=== PATIENT | male | born 1980 | race American Indian/Alaskan Native ===

== ENCOUNTER 2016-09-08 23:15 | Emergency (ER) | payer MEDICARE, OTHER ==
[2016-09-09 00:22] LABS: Basophils % (Auto) 1.3 % (0.0-1.8); Eosinophils % (Auto) 2.2 % (0.0-4.3); Hemoglobin 13.9 gm/dl (11.8-15.2); Mean Corpuscular HGB Conc 32 % (32-34); Mean Corpuscular Hemoglobin 29 pg (28-32); Mean Corpuscular Volume 90 fl (84-94); Platelet Count 197 K/mm3 (140-440); Red Blood Count 4.75 M/mm3 (3.65-5.03); White Blood Count 8.6 K/mm3 (4.5-11.0)
[2016-09-09 00:47] LABS: Anion Gap 17 mmol/L; Blood Urea Nitrogen 16 mg/dL (9-20); Calcium 8.7 mg/dL (8.4-10.2); Carbon Dioxide 24 mmol/L (22-30); Chloride 104.5 mmol/L (98-107); Glucose 87 mg/dL (75-100); Potassium 4.2 mmol/L (3.6-5.0); Sodium 141 mmol/L (137-145)
[2016-09-09 01:11] LABS: Urine Drugs of Abuse Note Disclamer
[2016-09-09 01:37] LABS: Bilirubin,Urine NEG (Negative); Blood,Urine NEG (Negative); Ketones,Urine NEG (Negative); Leukocyte Esterase,Urine NEG (Negative); Mucus,Urine FEW /HPF; Nitrite,Urine NEG (Negative); Protein,Urine <15 mg/dL mg/dL (Negative)
--- NOTE | 2016-09-09 09:36 | Emergency Department Report ---
ED Psych HPI - General Chief Complaint: Psych Stated Complaint: MENTAL EVALUATION Time Seen by Provider: 09/09/16 09:35 Source: patient Mode of arrival: Ambulatory - History of Present Illness Initial Comments: Patient states that he wanted to [facility] and he was sent here for medical clearance. He states he has been through this process before many times. He admits noncompliance with his medication. He would like to be placed back on his medication in the inpatient setting because he "feels homicidal and suicidal". He has not made any specific plan. He is not taking an overdose or committed any active self-harm. He states he has a "paranoid schizophrenic". MD Complaint: suicidal ideation -: year(s) Associated Psychiatric Symptoms: suicidal ideation, homicidal ideation History of same: Yes Quality: intermittent Improves With: none Worsens With: none Context: not taking psychiatric Associated Symptoms: denies other symptoms - Related Data Allergies Allergy/AdvReac Type Severity Reaction Status Date / Time divalproex sodium Allergy Seizure Verified 09/08/16 23:57 [From Depakote] haloperidol [From Haldol] AdvReac Unknown Verified 09/08/16 23:57 haloperidol lactate AdvReac Unknown Verified 09/08/16 23:57 [From Haldol] ED Review of Systems ROS: Stated complaint: MENTAL EVALUATION Other details as noted in HPI Constitutional: denies: chills, fever Eyes: denies: eye pain, eye discharge, vision change ENT: denies: ear pain, throat pain Respiratory: denies: cough, shortness of breath, wheezing Cardiovascular: denies: chest pain, palpitations Endocrine: no symptoms reported Gastrointestinal: denies: abdominal pain, nausea, diarrhea Genitourinary: denies: urgency, dysuria Musculoskeletal: denies: back pain, joint swelling, arthralgia Skin: denies: rash, lesions Neurological: denies: headache, weakness, paresthesias Psychiatric: homicidal thoughts, suicidal thoughts. denies: anxiety, depression Hematological/Lymphatic: denies: easy bleeding, easy bruising ED Past Medical Hx - Past Medical History Hx Psychiatric Treatment: Yes (paranoid schizophrenic, PTSD) - Surgical History Past Surgical History?: Yes Additional Surgical History: pilonidal cyst removed from tailbone - Social History Smoking Status: Current Every Day Smoker Substance Use Type: Cocaine ED Physical Exam - General Limitations: No Limitations General appearance: alert, in no apparent distress - Head Head exam: Present: atraumatic, normocephalic - Eye Eye exam: Present: normal appearance. Absent: scleral icterus - ENT ENT exam: Present: normal exam, mucous membranes moist - Neck Neck exam: Present: normal inspection - Respiratory Respiratory exam: Present: normal lung sounds bilaterally. Absent: respiratory distress - Cardiovascular Cardiovascular Exam: Present: regular rate, normal rhythm. Absent: systolic murmur, diastolic murmur, rubs, gallop - GI/Abdominal GI/Abdominal exam: Present: soft, normal bowel sounds. Absent: distended, tenderness, guarding, rebound, rigid - Rectal Rectal exam: Present: deferred - Extremities Exam Extremities exam: Present: normal inspection - Back Exam Back exam: Present: normal inspection - Neurological Exam Neurological exam: Present: alert, oriented X3, CN II-XII intact. Absent: motor sensory deficit - Psychiatric Psychiatric exam: Present: normal affect, normal mood - Skin Skin exam: Present: warm, dry, intact, normal color. Absent: rash ED Course Vital Signs 09/09/16 09/09/16 12:16 12:17 Temperature 98.6 F Pulse Rate 74 Respiratory 20 20 Rate Blood Pressure 154/79 [Left] O2 Sat by Pulse 100 100 Oximetry - Reevaluation(s) Reevaluation #1: Consultation [facility] is pending. 09/09/16 13:21 Reevaluation #2: I have spoken to the mental health counselor again. They have yet to determine the patient's disposition. He is medically clear for psychiatric placement. 09/09/16 15:44 ED Medical Decision Making - Lab Data Result diagrams: 09/09/16 00:10 09/09/16 00:10 Laboratory Results - last 24 hr 09/08/16 09/08/16 09/09/16 Unknown Unknown 00:10 WBC 8.6 RBC 4.75 Hgb 13.9 Hct 43.0 MCV 90 MCH 29 MCHC 32 RDW 14.0 Plt Count 197 Lymph % (Auto) 47.3 H Wood % (Auto) 7.5 H Eos % (Auto) 2.2 Baso % (Auto) 1.3 Lymph # 4.1 Wood # 0.6 Eos # 0.2 Baso # 0.1 Seg Neutrophils % 41.7 Seg Neutrophils # 3.6 Sodium Potassium Chloride Carbon Dioxide Anion Gap BUN Creatinine Estimated GFR BUN/Creatinine Ratio Glucose Calcium Urine Color Yellow Urine Turbidity Cloudy Urine pH 7.0 Ur Specific Britt 1.026 Urine Protein <15 mg/dl Urine Glucose (UA) Neg Urine Ketones Neg Urine Blood Neg Urine Nitrite Neg Urine Bilirubin Neg Urine Urobilinogen 4.0 Ur Leukocyte Esterase Neg Urine WBC (Auto) 7.0 H Urine RBC (Auto) 2.0 U Epithel Cells (Auto) < 1.0 Urine Mucus Few Salicylates Urine Opiates Screen Presumptive negative Urine Methadone Screen Presumptive negative Acetaminophen Ur Barbiturates Screen Presumptive positive Ur Phencyclidine Scrn Presumptive negative Ur Amphetamines Screen Presumptive negative U Benzodiazepines Scrn Presumptive negative Urine Cocaine Screen Presumptive positive U Marijuana (THC) Screen Presumptive negative Drugs of Abuse Note Disclamer Plasma/Serum Alcohol 09/09/16 09/09/16 09/09/16 00:10 00:10 00:10 WBC RBC Hgb Hct MCV MCH MCHC RDW Plt Count Lymph % (Auto) Wood % (Auto) Eos % (Auto) Baso % (Auto) Lymph # Wood # Eos # Baso # Seg Neutrophils % Seg Neutrophils # Sodium 141 Potassium 4.2 Chloride 104.5 Carbon Dioxide 24 Anion Gap 17 BUN 16 Creatinine 1.0 Estimated GFR > 60 BUN/Creatinine Ratio 16.00 Glucose 87 Calcium 8.7 Urine Color Urine Turbidity Urine pH Ur Specific Britt Urine Protein Urine Glucose (UA) Urine Ketones Urine Blood Urine Nitrite Urine Bilirubin Urine Urobilinogen Ur Leukocyte Esterase Urine WBC (Auto) Urine RBC (Auto) U Epithel Cells (Auto) Urine Mucus Salicylates < 0.3 L Urine Opiates Screen Urine Methadone Screen Acetaminophen < 15.0 Ur Barbiturates Screen Ur Phencyclidine Scrn Ur Amphetamines Screen U Benzodiazepines Scrn Urine Cocaine Screen U Marijuana (THC) Screen Drugs of Abuse Note Plasma/Serum Alcohol 09/09/16 00:10 WBC RBC Hgb Hct MCV MCH MCHC RDW Plt Count Lymph % (Auto) Wood % (Auto) Eos % (Auto) Baso % (Auto) Lymph # Wood # Eos # Baso # Seg Neutrophils % Seg Neutrophils # Sodium Potassium Chloride Carbon Dioxide Anion Gap BUN Creatinine Estimated GFR BUN/Creatinine Ratio Glucose Calcium Urine Color Urine Turbidity Urine pH Ur Specific Britt Urine Protein Urine Glucose (UA) Urine Ketones Urine Blood Urine Nitrite Urine Bilirubin Urine Urobilinogen Ur Leukocyte Esterase Urine WBC (Auto) Urine RBC (Auto) U Epithel Cells (Auto) Urine Mucus Salicylates Urine Opiates Screen Urine Methadone Screen Acetaminophen Ur Barbiturates Screen Ur Phencyclidine Scrn Ur Amphetamines Screen U Benzodiazepines Scrn Urine Cocaine Screen U Marijuana (THC) Screen Drugs of Abuse Note Plasma/Serum Alcohol < 0.01 Laboratory Results - last 24 hr 09/08/16 09/08/16 09/09/16 Unknown Unknown 00:10 WBC 8.6 RBC 4.75 Hgb 13.9 Hct 43.0 MCV 90 MCH 29 MCHC 32 RDW 14.0 Plt Count 197 Lymph % (Auto) 47.3 H Wood % (Auto) 7.5 H Eos % (Auto) 2.2 Baso % (Auto) 1.3 Lymph # 4.1 Wood # 0.6 Eos # 0.2 Baso # 0.1 Seg Neutrophils % 41.7 Seg Neutrophils # 3.6 Sodium Potassium Chloride Carbon Dioxide Anion Gap BUN Creatinine Estimated GFR BUN/Creatinine Ratio Glucose Calcium Urine Color Yellow Urine Turbidity Cloudy Urine pH 7.0 Ur Specific Britt 1.026 Urine Protein <15 mg/dl Urine Glucose (UA) Neg Urine Ketones Neg Urine Blood Neg Urine Nitrite Neg Urine Bilirubin Neg Urine Urobilinogen 4.0 Ur Leukocyte Esterase Neg Urine WBC (Auto) 7.0 H Urine RBC (Auto) 2.0 U Epithel Cells (Auto) < 1.0 Urine Mucus Few Salicylates Urine Opiates Screen Presumptive negative Urine Methadone Screen Presumptive negative Acetaminophen Ur Barbiturates Screen Presumptive positive Ur Phencyclidine Scrn Presumptive negative Ur Amphetamines Screen Presumptive negative U Benzodiazepines Scrn Presumptive negative Urine Cocaine Screen Presumptive positive U Marijuana (THC) Screen Presumptive negative Drugs of Abuse Note Disclamer Plasma/Serum Alcohol 09/09/16 09/09/16 09/09/16 00:10 00:10 00:10 WBC RBC Hgb Hct MCV MCH MCHC RDW Plt Count Lymph % (Auto) Wood % (Auto) Eos % (Auto) Baso % (Auto) Lymph # Wood # Eos # Baso # Seg Neutrophils % Seg Neutrophils # Sodium 141 Potassium 4.2 Chloride 104.5 Carbon Dioxide 24 Anion Gap 17 BUN 16 Creatinine 1.0 Estimated GFR > 60 BUN/Creatinine Ratio 16.00 Glucose 87 Calcium 8.7 Urine Color Urine Turbidity Urine pH Ur Specific Britt Urine Protein Urine Glucose (UA) Urine Ketones Urine Blood Urine Nitrite Urine Bilirubin Urine Urobilinogen Ur Leukocyte Esterase Urine WBC (Auto) Urine RBC (Auto) U Epithel Cells (Auto) Urine Mucus Salicylates < 0.3 L Urine Opiates Screen Urine Methadone Screen Acetaminophen < 15.0 Ur Barbiturates Screen Ur Phencyclidine Scrn Ur Amphetamines Screen U Benzodiazepines Scrn Urine Cocaine Screen U Marijuana (THC) Screen Drugs of Abuse Note Plasma/Serum Alcohol 09/09/16 09/09/16 00:10 Unknown WBC RBC Hgb Hct MCV MCH MCHC RDW Plt Count Lymph % (Auto) Wood % (Auto) Eos % (Auto) Baso % (Auto) Lymph # Wood # Eos # Baso # Seg Neutrophils % Seg Neutrophils # Sodium Potassium Chloride Carbon Dioxide Anion Gap BUN Creatinine Estimated GFR BUN/Creatinine Ratio Glucose Calcium Urine Color Yellow Urine Turbidity Clear Urine pH 6.0 Ur Specific Britt 1.025 Urine Protein <15 mg/dl Urine Glucose (UA) Neg Urine Ketones Neg Urine Blood Neg Urine Nitrite Neg Urine Bilirubin Neg Urine Urobilinogen 2.0 Ur Leukocyte Esterase Neg Urine WBC (Auto) 1.0 Urine RBC (Auto) 3.0 U Epithel Cells (Auto) < 1.0 Urine Mucus Few Salicylates Urine Opiates Screen Urine Methadone Screen Acetaminophen Ur Barbiturates Screen Ur Phencyclidine Scrn Ur Amphetamines Screen U Benzodiazepines Scrn Urine Cocaine Screen U Marijuana (THC) Screen Drugs of Abuse Note Plasma/Serum Alcohol < 0.01 Critical care attestation.: If time is entered above; I have spent that time in minutes in the direct care of this critically ill patient, excluding procedure time. ED Disposition Clinical Impression: Cocaine abuse, Psychiatric disorder Disposition: DC/TX PSY HOSP/PSY UNIT Is pt being admited?: No Does the pt Need Aspirin: No Condition: Stable Referrals: PRIMARY CARE, [Primary Care Provider] - 3-5 Days Time of Disposition: 15:45
[2016-09-09 13:05] LABS: Bilirubin,Urine NEG (Negative); Blood,Urine NEG (Negative); Ketones,Urine NEG (Negative); Leukocyte Esterase,Urine NEG (Negative); Mucus,Urine FEW /HPF; Nitrite,Urine NEG (Negative); Protein,Urine <15 mg/dL mg/dL (Negative)
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
[2016-09-10 08:09] VITALS: BP 125/77
--- NOTE | 2016-09-10 12:49 | Progress Note ---
Subjective - Reason for Consult Consult date: 09/10/16 Reason for consult: psychiatric follow up - Chief Complaint Chief complaint: "I need my medicine" 35 year old black male seen in the ER for psychiatric follow up. He reports agitation, frequent aggressive outbursts, and AH telling him he will soon. He reports SI/HI within the last 2 days. His peer in the alf has a TPO against him and has taken his place in the alf now since he has been in the hospital. He states Seroquel works well for him. Mental Status Exam - Vital signs Last Vital Signs Temp 98.5 F 09/10/16 08:07 Pulse 65 09/10/16 08:07 Resp 20 09/10/16 08:07 BP 125/77 09/10/16 08:07 Pulse Ox 100 09/10/16 08:07 - Exam Orientation: time, place, person Affect: other (irritable) Mood: congruent with affect Thought content: paranoia (reports), other (SI/HI, recent aggressive acts toward others) Thought Process: Intact Perceptions: auditory, hallucinations Speech: normal rate and pattern Concentration: focused Motor activity: normal Level of consciousness: alert Memory: Intact Sleep Symptoms: Restless Interaction: cooperative Assessment and Plan Impression: Patient reported history of SCPT and PTSD and was medicated previously with haldol 5mg bid and seroquel 400mg bid and benadryl hs. He currently complains of agitation and is unsure if he will have an aggressive outbursts like recently. Reports SI/HI within the last 1-2 days. Cocaine use Recommendation: 1013 and transfer to inpatient psychiatric facility
== END 2016-09-10 19:02 ==
LOC: ED 23:15
DX: F14.10 Cocaine abuse, uncomplicated (principal); F20.0 Paranoid schizophrenia; F43.10 Post-traumatic stress disorder, unspecified; F17.200 Nicotine dependence, unspecified, uncomplicated; Z88.8 Allergy status to other drugs, medicaments and biological substances
CPT/HCPCS: 36415; 80048; 80307; 81001; 85025; 87086; 99285; G0480; 80320

== ENCOUNTER 2016-10-23 13:18 | Emergency (ER) | payer SELFPAY ==
[2016-10-23 13:56] LABS: Basophils % (Auto) 0.6 % (0.0-1.8); Eosinophils % (Auto) 1.7 % (0.0-4.3); Hematocrit 43.7 % (35.5-45.6); Hemoglobin 14.4 gm/dl (11.8-15.2); Mean Corpuscular HGB Conc 33 % (32-34); Mean Corpuscular Hemoglobin 29 pg (28-32); Mean Corpuscular Volume 89 fl (84-94); Platelet Count 226 K/mm3 (140-440); Red Cell Distribution Width 14.9 % (13.2-15.2); White Blood Count 9.4 K/mm3 (4.5-11.0)
[2016-10-23 14:13] LABS: Anion Gap 16 mmol/L; BUN/Creatinine Ratio 18.75; Blood Urea Nitrogen 15 mg/dL (9-20); Calcium 8.8 mg/dL (8.4-10.2); Carbon Dioxide 24 mmol/L (22-30); Chloride 105.8 mmol/L (98-107); Glucose 115 mg/dL (75-100); Potassium 3.7 mmol/L (3.6-5.0); Sodium 142 mmol/L (137-145)
[2016-10-23 17:39] LABS: Urine Drugs of Abuse Note Disclamer
[2016-10-23 17:42] LABS: Bilirubin,Urine NEG (Negative); Blood,Urine NEG (Negative); Ketones,Urine NEG (Negative); Leukocyte Esterase,Urine NEG (Negative); Mucus,Urine FEW /HPF; Nitrite,Urine NEG (Negative); Protein,Urine <15 mg/dL mg/dL (Negative); WBC,Urine < 1.0 /HPF (0.0-6.0)
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
[2016-10-24 17:39] VITALS: BP 153/94
== END 2016-10-24 17:37 ==
LOC: ED 13:18
DX: F23 Brief psychotic disorder (principal); R45.850 Homicidal ideations; F17.200 Nicotine dependence, unspecified, uncomplicated; F14.90 Cocaine use, unspecified, uncomplicated; Z88.8 Allergy status to other drugs, medicaments and biological substances
CPT/HCPCS: 36415; 80048; 80307; 81001; 85025; 99285; G0480; 80320